=== PATIENT | male | born 1950 | race Two or more races ===

== ENCOUNTER → 2020-03-12 | Outpatient (CLI) | payer OTHER | END | disposition home or self-care (01) | LOC: MRI 08:15 | PROVIDERS: ATTEND Surgery | DX: C19 Malignant neoplasm of rectosigmoid junction (principal); R59.0 Localized enlarged lymph nodes; N40.0 Benign prostatic hyperplasia without lower urinary tract symptoms; K62.5 Hemorrhage of anus and rectum; K59.09 Other constipation | CPT/HCPCS: 72196 ==

== ENCOUNTER 2020-04-02 05:38 | Day surgery (SDC) | payer OTHER ==
[~2020-04-02 05:38] MED LIST: ROSUVASTATIN CA10 MG; ZESTRIL10 M1
[2020-04-02] MEDS ORDERED: PERCOCET 5-3251 EACH PO (08:03)
== END 2020-04-02 09:42 | disposition home or self-care (01) ==
LOC: O/R 05:38 → RECOVERY 05:38 → CIR.AMB 05:38 → O/R 09:35 → CIR.AMB 09:42 → RECOVERY 10:30 → EDSTATUS 10:30 → RECOVERY 13:15
PROVIDERS: ATTEND Surgery
DX: C19 Malignant neoplasm of rectosigmoid junction (principal); Z20.828 Contact with and (suspected) exposure to other viral communicable diseases
CPT/HCPCS: 36561; C1751

== ENCOUNTER 2020-04-15 09:05 | Outpatient (CLI) | payer OTHER ==
[~2020-04-15 09:05] MED LIST changes: +PERCOCET 5-3251 EACH PO
== END 2020-04-15 09:24 | disposition home or self-care (01) ==
LOC: NUCLEAR 09:05
PROVIDERS: ATTEND Internal Medicine
DX: C20 Malignant neoplasm of rectum (principal)
CPT/HCPCS: 78815; A9552

== ENCOUNTER 2021-01-11 21:48 | Emergency (ER) | payer OTHER ==
[~2021-01-11] VITALS: Ht 165.1 cm; Wt 58.1 kg
== END 2021-01-12 00:58 | disposition home or self-care (01) ==
LOC: ER 21:48
DX: C20 Malignant neoplasm of rectum (principal)

== ENCOUNTER 2021-01-13 07:23 | Day surgery (SDC) | payer OTHER | END 2021-01-13 12:35 | disposition home or self-care (01) | LOC: AMB-ENDOS 07:23 | PROVIDERS: ATTEND Surgery | DX: D12.8 Benign neoplasm of rectum (principal); K62.82 Dysplasia of anus; Z20.822 Contact with and (suspected) exposure to COVID-19 ==

== ENCOUNTER 2021-09-13 21:49 | Emergency (ER) | payer OTHER ==
[~2021-09-13] VITALS: Ht 152.4 cm; Wt 56.7 kg
[2021-09-13] MEDS ORDERED: AMOX1TAB5 PO (22:55)
== END 2021-09-13 22:57 | disposition home or self-care (01) ==
LOC: ER 21:49
DX: S61.422A Laceration with foreign body of left hand, initial encounter (principal); W26.8XXA Contact with other sharp object(s), not elsewhere classified, initial encounter; Y93.9 Activity, unspecified; Y92.9 Unspecified place or not applicable

== ENCOUNTER 2021-09-20 12:28 | Emergency (ER) | payer OTHER ==
[~2021-09-20] VITALS: Ht 165.1 cm; Wt 59.0 kg
[~2021-09-20 12:28] MED LIST changes: +AMOX1TAB5 PO
== END 2021-09-20 14:52 | disposition home or self-care (01) ==
LOC: ER 12:28
DX: Z48.02 Encounter for removal of sutures (principal)

== ENCOUNTER 2021-12-19 06:00 | Day surgery (SDC) | payer OTHER ==
[~2021-12-19 06:00] MED LIST changes: +CRESTOR10 MG PO; +NORVASC5 MG PO; +TAMS0.4C PO; +TOPROL XL25 M1 PO
[2021-12-19] MEDS ORDERED: ULTRACET PO (08:34)
== END 2021-12-19 09:50 | disposition home or self-care (01) ==
LOC: CIR.AMB 06:00
PROVIDERS: ATTEND Surgery
DX: C20 Malignant neoplasm of rectum (principal); I10 Essential (primary) hypertension; E78.5 Hyperlipidemia, unspecified; Z92.21 Personal history of antineoplastic chemotherapy; C78.02 Secondary malignant neoplasm of left lung

== ENCOUNTER 2022-05-04 07:32 | Outpatient (CLI) | payer OTHER ==
[~2022-05-04 07:32] MED LIST changes: +ULTRACET PO
== END 2022-05-04 07:33 | disposition home or self-care (01) ==
LOC: NUCLEAR 07:32
PROVIDERS: ATTEND Surgery
DX: C20 Malignant neoplasm of rectum (principal)
CPT/HCPCS: 78816; A9552

== ENCOUNTER 2023-02-02 07:30 | Outpatient (CLI) | payer OTHER | END 2023-02-02 07:59 | disposition home or self-care (01) | LOC: TOM 07:30 | PROVIDERS: ATTEND Surgery | DX: C20 Malignant neoplasm of rectum (principal) ==

== ENCOUNTER 2024-04-05 08:13 | Outpatient (CLI) | payer OTHER | END 2024-04-05 08:14 | disposition home or self-care (01) | LOC: NUCLEAR 08:13 | PROVIDERS: ATTEND Internal Medicine | DX: C20 Malignant neoplasm of rectum (principal); C78.01 Secondary malignant neoplasm of right lung ==